=== PATIENT | male | born 1990 | race Caucasian/White ===

== ENCOUNTER 2020-03-28 18:19 | Emergency (ER) | payer MEDICARE, MEDICAID ==
[~2020-03-28] VITALS: Ht 165.1 cm; Wt 57.5 kg
[~2020-03-28 18:19] MED LIST: CARB200T2 PO; LACO200T PO; TOPI200C6 PO
[2020-03-28 18:27] VITALS: BP 123/70
--- NOTE | 2020-03-28 19:06 | NUR ---
pt resting in [facility] at this time; nadn. waiting for erp for pt history and assessment.
== END 2020-03-28 20:19 | disposition home or self-care (01) ==
LOC: ED 20:10
DX: L73.9 Follicular disorder, unspecified (principal)
CPT/HCPCS: 99283

== ENCOUNTER 2020-09-07 14:52 | Emergency (ER) | payer MEDICARE, MEDICAID ==
[~2020-09-07] VITALS: Ht 165.1 cm; Wt 62.4 kg
[2020-09-07 15:54] LABS: BASOPHILS % (AUTO) 1 % (0-1); EOSINOPHILS % (AUTO) 3 % (1-7); LYMPHOCYTES % (AUTO) 29 % (22-44); MEAN CORPUSCULAR HEMOGLOBIN 30.6 pg (27.5-34.5); MEAN CORPUSCULAR HGB CONC 33.3 g/dL (33.2-36.2); MEAN PLATELET VOLUME 7.7 fL (7.4-10.4); MONOCYTES % (AUTO) 6 % (2-9); NEUTROPHILS % (AUTO) 62 % (42-75); PLATELET COUNT 301 x10^3/uL (130-400); RED BLOOD COUNT 5.21 x10^6/uL (4.38-5.82); RED CELL DISTRIBUTION WIDTH 12.6 % (9.4-14.8)
[2020-09-07 16:02] LABS: ALBUMIN 4.2 g/dL (3.4-5.0); ANION GAP 6 mmol/L (5-15); CALCIUM 8.8 mg/dL (8.5-10.1); CHLORIDE 111 mmol/L (98-107); CREATININE 1.08 mg/dL (0.7-1.3)
[2020-09-07 16:18] LABS: MD NO
--- NOTE | 2020-09-07 16:33 | NUR ---
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
--- NOTE | 2020-09-07 16:43 | NUR ---
PER PT HE IS HERE DUE TO SOB WHEN WALKING. PT DENIES COUGH, FEVER, OR CHEST PAIN. PT ALSO DENIES SOB RIGHT NOW. PT STATES "A MONTH AGO I HAD A HIGH WHITE BLOOD CELL COUNT AND [facility] DIDN'T DO ANYTHING ABOUT IT SO MAYBE IT IS CAUSING THE SHORTNESS OF BREATH".
--- NOTE | 2020-09-07 16:45 | NUR ---
PT REFUSING TO WEAR GOWN AT THIS TIME, PT HAS NO OTHER COMPLAINTS.
[2020-09-07 18:20] VITALS: BP 112/76
== END 2020-09-07 18:23 | disposition home or self-care (01) ==
LOC: ED 15:56
DX: R06.00 Dyspnea, unspecified (principal); R42 Dizziness and giddiness; R63.0 Anorexia; R07.9 Chest pain, unspecified; R94.31 Abnormal electrocardiogram [ECG] [EKG]; G40.909 Epilepsy, unspecified, not intractable, without status epilepticus
CPT/HCPCS: 36415; 71045; 80048; 82040; 85025; 93005; 99285